=== PATIENT | female | born 1975 | race Caucasian/White ===

== ENCOUNTER → 2022-04-15 | Outpatient (CLI) | payer MEDICAID, SELFPAY ==
--- NOTE | 2022-04-15 10:30 | EMB_PTH ---
PATIENT: NJ MENDOZA LOC: [facility] U#:[id number] AGE/SX: 47/F ROOM: RE04/15/[address]: Dr. Nasra Copeland DO : 1975 BED: DIS: 04/15/2022 SPEC #: [id number] RECD: 04/15/22 10:57 STATUS: SHAD REQ #: [id number] ELIZABETH: 04/15/22 10:[address]: Nasra Copeland DEPT: SURGICAL PATHOLOGY RECD BY: Ting Mcwilliams ENTERED: 04/15/22 11:48 SP TYPE: ENDOM BX/C OTHR DR: Dr. Devan Pruitt MD Tissues: Endometrium, NOS Procedures: Surgery Specimen Level IV Comments: @ Originally on account #[id number] Req #[id number] HEADER OPERATION: Endometrial biopsy PRE-OP DIAGNOSIS: Heavy menses TISSUE SUBMITTED: Endometrial lining MICROSCOPIC DIAGNOSIS Endometrial biopsy: Scant strips of benign endometrial epithelium and superficial fragments of weakly proliferative endometrium and mucous. See comment. NANETTE:gennaro 04/16/2022 COMMENT The specimen predominantly consists of mucoid tissue. Clinical correlation and appropriate follow up are necessary. MICROSCOPIC DESCRIPTION Slides are reviewed. GROSS DESCRIPTION Received is one container labeled with the patient's name and not further designated. The specimen consists of multiple irregular fragments of weinstein mucoid tissue that in aggregate measure 2.0 x 1.5 x 0.2 cm. The specimen is totally submitted in one cassette. / NANETTE:gennaro 04/15/2022 TC:4 CPT: 01065
== END | disposition home or self-care (01) ==
PROVIDERS: PCP Family Medicine; Referring Provider Obstetrics & Gynecology; Visit Provider Obstetrics & Gynecology
DX: N92.0 Excessive and frequent menstruation with regular cycle (principal)
CPT/HCPCS: 88305

== ENCOUNTER 2022-07-13 09:45 | Day surgery (SDC) | payer MEDICAID, SELFPAY ==
[2022-07-13] VITALS (10 sets, daily range): BP systolic 101–152; BP diastolic 54–139; PULSE 49–77; RESP 9–18; TEMP 36.2–36.6; O2SAT 92–100; BMI 42.9
[2022-07-13 10:21] LABS: Internal QC Validated? YES +Cl - CLEAR BKGD; Pregnancy, Urine Negative Negative
[2022-07-13] MEDS: Gabapentin 600 MG Tablet PO (10:21)
[2022-07-13] MEDS: Phenazopyridine 95 MG Tablet 190 MG PO (10:21)
[2022-07-13] MEDS: dexAMETHasone 4 MG/ML Vial 8 MG IV (10:22)
[2022-07-13] MEDS: Acetaminophen 500 MG Tablet 1000 MG PO (10:22)
[2022-07-13] MEDS: Celecoxib 200 MG Capsule 400 MG PO (10:22)
[2022-07-13] MEDS: Lactated Ringers 1,000 ML 40 ML IV ×2 (10:26→12:40)
[2022-07-13 10:33] LABS: Bedside Glucose 92 mg/dL (74-106)
--- NOTE | 2022-07-13 11:16 | HP.PCM_ITS ---
History and Physical Date of Admission: 07/13/22 Intake Vital Signs ? 04/15/2309:40 06/01/2313:52 06/01/2313:52 Height 5 ft 2 in 5 ft 2 in 5 ft 2 in Weight: ? 229 lb 2 oz ? BMI ? 41.9 ? BP ? 136/92 H ? 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 History of delivery Family History? Mother Colon cancer DiabetesFather Heart disease Social History? Smoking Status:? Never smoker alcohol intake:? never substance use type:? does not use what type of physical activity do you participate in:? walking HPI Preop robotic hyst Details: NJ MENDOZA is a 47 year old (3 c-sections) who presents for discussion about possible hysterectomy. She saw the CNM recently at [facility] with the complaints of heavy menses. Ultrasound at [facility] shows? an 8 cm uterus with possible adenomyosis. The lining was thickened and there was a 1.3mm lower segment cyst. ovaries were normal . EMB was negative and she is ready to proceed with hysterectomy. History ? Elective abortions ? Hx Para ? ? ? 3 ? Spontaneous abortions ? Hx # Term Pregnancies ? Ectopic pregnancies ? Hx # Pregnancies ? Multiple births ? # of living children ? ROS Const ROS Unobtainable: All systems reviewed & are unremarkable except as noted in H Resp Resp: Reports system reviewed and no additional complaints, except as documented; Denies cough GI GI: Reports as per HPI Psych Psych: Reports system reviewed and no additional complaints, except as documented Exam Const General: cooperative, healthy appearing, comfortable and no acute distress Resp Effort & Inspection: normal respiratory effort Skin General: no rashes or lesions noted Psych Appearance: grossly normal Speech and Movement: speech and movement normal Coding Level of Care Code Off vis,est,level 4 Diagnoses Heavy menstrual bleeding? N92.0 Assessment and Plan Assessment and Plan (1) Heavy menstrual bleeding: ?Status:?Acute ?Comment: medroxyprogesterone 5mg daily until follow up with [facility] labs ordered ? ? ? Medications: Refilled medroxyprogesterone 5 mg? PO DAILY 30 tabs 2RF heavy menstru al bleeding N92.0 - Excessive and frequent menstruation with regular cycle ? Plan After discussing the patient's diagnosis and treatment plan options, patient wishes to proceed with surgical management.? I have discussed with the patient the risks, benefits, and alternatives of the procedure which include but are not limited to risks of anesthesia, bleeding, infection, possible damage to bowel, bladder, or surrounding vasculature which could lead to additional surgery to evaluate any complications.? Patient agrees to procedure and wishes to proceed.? ACOG/uptodate references given for additional information regarding procedure.? Plan for total robotic hysterectomy due to obesity and better access to vessels and curtain cleaner closure of the vaginal cuff.
[2022-07-13 11:28] LABS: Hematocrit 38.1 % (37-47); Hemoglobin 12.3 g/dL (12.0-15.0); Mean Corp Hgb Conc 32.3 g/dL (32-36); Mean Corpuscular Hgb 28.2 pg (27.0-32.0); Mean Corpuscular Volume 87.4 fL (81-99); Mean Platelet Vol. 9.5 fl (6.2-12.0); Platelet Count 226 K/mm3 (150-450); RBC Distribution Width CV 13.6 % (11.6-14.6); RBC Distribution Width SD 42.7 fl (35.1-43.9); Red Blood Count 4.36 M/mm3 (4.2-5.4); White Blood Count 4.3 K/mm3 (4.4-11.0)
[2022-07-13] MEDS: Magnesium 1 GM over 15 mins IV (11:29)
[2022-07-13] MEDS: Cefazolin 2 GM in 0.9% Normal Saline 100 ML IV (12:00)
--- NOTE | 2022-07-13 12:00 | HYST_PTH ---
PATIENT: NJ MENDOZA LOC: [facility] U#:[id number] AGE/SX: 47/F ROOM: RE07/13/[address]: Dr. Nasra Copeland DO : 1975 BED: DIS: 07/13/2022 SPEC #: [id number] RECD: 07/13/22 15:23 STATUS: SHAD RAFA #: [id number] ELIZABETH: 07/13/22 12:[address]: Nasra Copeland DEPT: SURGICAL PATHOLOGY RECD BY: Ting Mcwilliams ENTERED: 07/14/22 08:47 SP TYPE: HYSTERECT OTHR DR: Dr. Devan Pruitt MD Tissues: Uterus, NOS Procedures: Surgery Specimen Level V HEADER OPERATION: ERAS, lap robotic hysterectomy, bilateral salpingectomy, cysto PRE-OP DIAGNOSIS: Heavy menstrual bleeding TISSUE SUBMITTED: Uterus, cervix, bilateral fallopian tubes MICROSCOPIC DIAGNOSIS Uterus, cervix, bilateral fallopian tubes, hysterectomy and bilateral salpingectomy: Cervix ? chronic inflammation. Endometrium ? proliferative endometrium. Myometrium - no pathologic diagnosis. Bilateral fallopian tubes - no pathologic diagnosis. SJ:rg 07/15/2022 COMMENT Please make reference to previous specimen ([id number]), endometrial biopsy with diagnosis of ?scant strips of benign endometrial epithelium and superficial fragments of weakly proliferative endometrium and mucous.? MICROSCOPIC DESCRIPTION Slides are reviewed. GROSS DESCRIPTION Received in fixative is one container labeled with the patient's name and designated uterus, cervix, bilateral fallopian tubes. The specimen consists of a hysterectomy specimen consisting of uterus with cervix and attached bilateral fallopian tubes. The uterus with cervix weighs 123 gm and measures 11.0 x 6.0 x 4.5 cm. The serosal surface is ragged. The ectocervical mucosa is unremarkable. The external os is slit-like in contour. The endocervical canal measures 4.0 cm in length and the endocervical mucosa is weinstein, glistening and unremarkable. The triangular endometrial cavity measures 5.5 cm in length and up to 2.0 cm in width. The endometrium is congested, hemorrhagic and without any mass lesion and measures 0.2 cm in thickness. Sections of the uterine wall do not reveal any mass lesion and measures 2.0 cm in thickness. The right fallopian tube measures 5.5 cm in length and up to 1.0 cm in width. The femoral end is identified. Sections reveal unremarkable cut surfaces. The left fallopian tube is similar appearance to right and measures 5.5 cm in length and 0.8 cm in diameter. Shirt Cleaner sections are submitted in eight cassettes as follows: 1 - anterior cervix, 2 - posterior cervix, 3 & 4 - anterior uterine wall, 5 & 6 - posterior uterine wall, 7 ? right fallopian tube, 8 ? left fallopian tube. / SJ:rg 07/14/2022 TC:3 CPT: 39048
[2022-07-13] MEDS: Ondansetron 4 MG/2 ML Vial IV (13:53)
[2022-07-13] MEDS: Bupivacaine 0.25% 30 ML Vial (13:56)
[2022-07-13] MEDS: Lactated Ringers @ 70 MLS/HR 70 ML IV (14:03)
--- NOTE | 2022-07-13 14:09 | PCM.OPRPT ---
Problems Associated Problem List Diagnoses (1) Heavy menstrual bleeding: (2) Enlarged uterus: Report of Operation Date of Procedure: 07/13/22 Pre-Operative Diagnosis: enlarged uterus, prior caesarean sections, heavy vaginal bleeding, obesity Post-Operative Diagnosis: enlarged uterus, prior caesarean sections, heavy vaginal bleeding, obesity Surgery/Procedure Performed:: total robotic hysterectomy, bilateral salpingectomy, cystoscopy Description of Surgical Findings:: enlarged uterus, normal bladder, normal ovaries, normal cervix and normal fallopian tubes. periumbilical omental adhesions Surgeon: Nasra Copeland fraternity house cook: Dipesh Lieberman Type of Anesthesia: General Anesthesiologist: Bumlaro Martinez Specimen's removed: uterus, cervix, fallopian tubes Drains: none Estimated Blood Loss (mL): 50cc Fluids Replaced: 2 liters Description of Procedure: Findings: 13 cm size uterus, normal appearing ovaries and tubes. On exploration of the abdominal cavity the uterus, adnexa, bowel, and liver were found to be normal. Cystoscopy showed no evidence of leaking at approximately 250 cc of normal saline, positive ureteral orifices and jet flow are seen and no suture material was appreciated in the bladder. Specimens removed: Uterus and cervix, Bilateral tubes and ovaries Reason for surgery: This is a 47-year-old G9, P7 who presented to my office with history of heavy bleeding, obesity, and history of prior sections. Her EMB was found to be benign and she requested surgical intervention. the planned procedure is for a robotic hysterectomy the risks benefits and alternatives were discussed with the patient the patient had a clear understanding of the procedure and a consent form was signed. Procedure: The patient was placed in the dorsal low lithotomy position and prepped and draped in the normal sterile fashion both abdominally and in the perineum. Her legs were placed in stirrups a Bal catheter was inserted into the urethra without difficulty. A weighted speculum was placed in the vagina and a single-tooth tenaculum was used to grasp the anterior lip of the cervix. An advincula uterine manipulator was inserted through the cervix without complication. It was then tied into place at the 2 and 10:00 locations on the cervix. Gloves were changed and attention was turned towards the abdomen. Approximately 23 cm above the pubic symphysis in the midline, and after Marcaine injection, a 8 mm incision was made. An 8 mm trocar was inserted through the laparoscope, then inserted into the abdomen under direct visualization using the laparoscope. Good abdominal placement was noted and no complications were appreciated. An air seal device was utilized to create pneumoperitoneum. At 12 cm lateral to the midline on the left and right sides 8 mm accessory ports were placed. Next a left upper quadrant 8 mm head start assistant teacher port site was placed. The patient was placed in steep Trendelenburg position. The robot was docked. A periumbilical adhesion containing omentum was carfully taken down prior to start of the hysterectomy. This was done using the vessel sealer device The hysterectomy was initiated first by taking down the round ligament on each side using the vessel sealer device. The broad ligament was then and taken down using the vessel sealer device. Next the bladder flap was taken down without complication. There was a moderate amount of adhesions of the bladder to the anterior uterine wall. This was done using monopolar cautery to the level of the cervical vaginal junction. After the bladder flap was created, uterine vessels were then isolated and cauterized using the vessel sealer device and EndoShears. At this point the uterine vessels were taken down further starting from the ascending branch, dissecting along the edges of the cervix to the level of the cervical vaginal junction with hemostasis appreciated. The cervical vaginal junction was then using monopolar cautery in a circumferential pattern across the superior aspect of the cervix. The specimen was delivered through the vagina and sent to pathology. The remaining vaginal cuff was then closed using a V lock suture. This was performed in a running technique. Excellent hemostasis was obtained and good closure was noted. Irrigation was then performed. All operative sites were noted to be hemostatic. A cystoscopy was performed with a 70 degree cystoscope through the urethra into the bladder without complication. The bladder was instilled with approximately 250 cc of normal saline. Intraoperative images were made. Ureteral orifices and jets were identified. No suture material was appreciated in the bladder. The bladder was then drained and cystoscope was removed. The abdominal cavity was again examined using the laparoscope after the robot was undocked. All operative sites were noted to be hemostatic. The trochars were removed under direct visualization without complication and pneumoperitoneum was reduced. At this point the skin was then closed using 4-0 Monocryl subcuticular stitch and sealed with surgical glue. The patient tolerated the procedure well sponge lap and needle counts were correct x2 the patient was taken to the recovery room in stable condition. Complications none Admit VTE Documentation VTE Present on Admission: Yes VTE Mechan Device Prophylaxis: SCD's VTE Pharm Prophylaxis ordered?: Yes Multi Select Codes Urinary/Genital Urinary/Genital CPT Codes: 48134 TLH+BS/O >250gr uterus
--- NOTE | 2022-07-13 14:16 | DCINST_ITS ---
Discharge Instructions Diet Discharge Diet: No restrictions Activity May resume sexual activity in: 6 weeks Weight Bearing Status: Full weight bearing Dressing / Incision Call your doctor if your incision/area has: Continuous Slow Oozing, Sudden Increased Bleeding, Increased Pain/ Swelling, Increased Redness and Foul Smelling Discharge Call your doctor if you observe: Fever of 101 or Higher, Using more than 1 pad per hour, Shortness of breath, Chest pain and Uncontrolled pain Suture Line Care: Avoid Pulling/Pushing and Avoid Pinching/Bending Remove Dressing in: 1 week (if present) Cleanse incision/area with: Soap & Water and Keep Dressing Clean & Dry Follow Up Care Please Follow Up With: Nasra Copeland DO When: Call to make an appointment with your doctor for a postop visit in 2 and 6 weeks Test Results: Test results from this visit will be discussed in further detail at your follow- up appointment, if applicable. Discharge Plan Admission Primary Reason for Your Visit: hysterectomy Attending Provider: Nasra Copeland Primary Care Provider: Devan Pruitt Discharge Orders/Prescriptions Prescriptions: New ibuprofen 800 mg tablet 800 mg PO Q8H PRN (Reason: pain) Qty: 30 0RF oxycodone-acetaminophen [Percocet] 5-325 mg tablet 1 tab PO Q4H PRN (Reason: pain) 7 Days Qty: 30 0RF Rx Instructions: 1-2 tabs q 4 hrs as needed for pain Continued multivitamin Tablet 1 tab PO DAILY evening primrose oil 500 mg Capsule 500 mg PO DAILY Rx Instructions: give with meal/snack ferrous sulfate 325 mg (65 mg iron) Tablet 325 mg PO PRN PRN (Reason: NEEDED) calcium carb-D3-mag ox-zinc ox 333 mg-133 unit -133 mg-5 mg Tablet 1 tab PO DAILY PRN (Reason: Bleeding) Held turmeric 400 mg Capsule 400 mg PO DAILY Hold Instructions: Resume on 07/27/22. Discontinued medroxyprogesterone 5 mg tablet 5 mg PO DAILY Qty: 30 2RF Referrals / Follow Up: Devan Pruitt MD [Primary Care Provider] - Disposition Disposition (needs filled in before D/C Order can be placed): Home, Self Care
[2022-07-13] MEDS: HYDROcodone Bitartrate/Apap 5/325 Tablet PO (16:12)
== END 2022-07-13 18:58 | disposition home or self-care (01) ==
LOC: SDC 09:52 → AC 14:16
PROVIDERS: Anesthesiology; PCP Family Medicine; Referring Provider Obstetrics & Gynecology; Visit Provider Obstetrics & Gynecology
PROC: 0UT90ZZ Resection of Uterus, Open Approach (ICD-10-PCS; CPT 58571; principal; 2022-07-13 11:40)
DX: N72 Inflammatory disease of cervix uteri (principal); Z68.41 Body mass index [BMI] 40.0-44.9, adult; N92.0 Excessive and frequent menstruation with regular cycle; N85.2 Hypertrophy of uterus; E66.9 Obesity, unspecified; F32.A Depression, unspecified; Z79.899 Other long term (current) drug therapy
CPT/HCPCS: 58571; S2900; 00840; 81025; 82962; 83735; 85027; 86850; 86900; 86901; 88307; J7120; J2405; J3475